=== PATIENT | female | born 1975 | race African-American/Black ===

== ENCOUNTER 2020-06-26 13:32 | Outpatient (CLI) | payer BC ==
--- NOTE | 2020-06-26 15:49 | MMO ---
Bilateral MAMMO Bilat Screen [facility]. CLINICAL HISTORY: Patient is 44 years old and is seen for screening. The patient has no family history of breast cancer. The patient has no personal history of cancer. VIEWS: The views performed were: bilateral craniocaudal with tomosynthesis and bilateral mediolateral oblique with tomosynthesis. This study has been interpreted with the assistance of computer-aided detection. MAMMOGRAM FINDINGS: There are scattered fibroglandular densities. There is a 5mm nosule in the left uper outer posterior breast. In the right breast, there are no suspicious masses, calcifications or areas of architectural distortion. IMPRESSION: FINDING IN THE LEFT BREAST REQUIRES ADDITIONAL EVALUATION. MAGNIFICATION VIEWS ARE RECOMMENDED. AN ULTRASOUND EXAM IS RECOMMENDED IF NEEDED. ADDITIONAL IMAGING. THE RESULTS OF THIS EXAM WERE SENT TO THE PATIENT. ACR BI-RADS Category 0 - Incomplete: Need additional imaging evaluation. [facility] will notify the patient of the need for additional imaging services. MAMMOGRAPHY NOTE: 1. A negative mammogram report should not delay a biopsy if a dominant of clinically suspicious mass is present. 2. Approximately 10% to 15% of breast cancers are not detected by mammography. 3. Adenosis and dense breasts may obscure an underlying neoplasm. Reported by: DAKOTA FERNANDO MD Electonically Signed: [id number]
== END 2020-06-26 13:33 | disposition home or self-care (01) ==
LOC: BICMAMMO 13:32
PROVIDERS: ATTEND Family Medicine
DX: Z12.31 Encounter for screening mammogram for malignant neoplasm of breast (principal); N63.21 Unspecified lump in the left breast, upper outer quadrant
CPT/HCPCS: 77063; 77067

== ENCOUNTER 2020-06-26 13:33 | Outpatient (CLI) | payer BC ==
--- NOTE | 2020-06-26 14:49 | ULT ---
PELVIC ULTRASOUND: 06/26/20 Transabdominal ultrasound of the pelvis performed. INDICATIONS: Dysfunctional uterine bleeding. No comparison. FINDINGS: Uterus is large and heterogeneous. There is evidence of a large uterine fundal fibroid which measures up to 10 cm. Endometrial stripe is not delineated due to this large heterogeneous fibroid. Neither ovary is identi fied. IMPRESSION: Large heterogeneous uterine fibroid. Ovaries are not identified. POS: AGW
== END 2020-06-26 13:34 | disposition home or self-care (01) ==
LOC: BICULT 13:33
PROVIDERS: ATTEND Family Medicine
DX: N93.8 Other specified abnormal uterine and vaginal bleeding (principal); D25.9 Leiomyoma of uterus, unspecified
CPT/HCPCS: 76856

== ENCOUNTER 2020-07-17 14:14 | Outpatient (CLI) | payer BC | END 2020-07-17 14:15 | disposition home or self-care (01) | LOC: BICMAMMO 14:14 | PROVIDERS: ATTEND Family Medicine | DX: N63.20 Unspecified lump in the left breast, unspecified quadrant (principal) | CPT/HCPCS: G0279 ==